=== PATIENT | female | born 2000 | race Caucasian/White ===

== ENCOUNTER 2024-05-31 05:27 | Inpatient (IN) | payer MEDICAID, SELFPAY ==
--- NOTE | 2024-05-27 09:08 | ESHP_ITS ---
RE: YOLA OLMSTEAD : 2000 DATE OF ADMISSION: 05/31/2024 HISTORY OF PRESENT ILLNESS: This is a 23-year-old 2, para 1-0-0-1 with due date of 06/07/2024 with intrauterine at 39 weeks' gestation on 05/31/2024, who presents for repeat delivery. The patient has had a prior delivery and she elects repeat delivery. She denies any leaking or bleeding. She reports normal movement. Her care was complicated by Klebsiella urinary tract infection back in 10/2023. Her group B strep vaginal rectal swab is positive. MEDICATIONS: multivitamin 1 p.o. daily. SOCIAL HISTORY: She denies any alcohol, drug use or smoking. PAST MEDICAL HISTORY: Denies. FAMILY HISTORY: Denies. OBSTETRIC HISTORY: In 05/2021, 40-week delivery, 8 pound male, no complications. PAST SURGICAL HISTORY: delivery in 05/2021. REVIEW OF SYSTEMS: She denies any chest pain, palpitations, cough, fever, shortness of breath, or lower extremity pain. PHYSICAL EXAMINATION: VITAL SIGNS: Blood pressure 133/70, heart rate 88, respirations 18, temperature is 98.2, weight 236 pounds. HEENT: Oropharynx and sclerae are clear. LUNGS: Clear to auscultation bilaterally. HEART: Regular rate and rhythm. ABDOMEN: Gravid, term size. Old Pfannenstiel scar noted. EXTREMITIES: Nontender. SKIN: No gross rashes or lesions. NEUROLOGIC: No focal deficit. ASSESSMENT: Intrauterine at 39 weeks, previous delivery, elects repeat delivery. PLAN: Repeat delivery. Informed consent was obtained. The patient made aware of the risks, complications, alternatives, benefits of the proposed procedure and she agrees. DT: 08:50:12 TT: 09:07:00 Ref: [id number] - TID: [id number] MTDEmily
[2024-05-30 09:11] LABS: Basophils % (Auto) 0 % (0-2.5); Eosinophils # (Auto) 0.1 Thou/mm3 (0.0-0.5); Eosinophils % (Auto) 1 % (0-10); Hematocrit 35.5 % (36.0-46.0); Hemoglobin 12.3 g/dL (12.0-16.0); Immature Granulocytes % (Auto) 0 % (0-0); Immature Granulocytes Auto 0.02 Thou/mm3 (0.00-0.00); Lymphocytes # (Auto) 2.2 Thou/mm3 (1.0-4.8); Lymphocytes % (Auto) 29 % (10-50); Mean Corpuscular HGB Conc 34.6 g/dl (31.0-37.0); Mean Corpuscular Hemoglobin 28.4 pg (25.0-35.0); Mean Corpuscular Volume 82 fL (80-100); Monocytes # (Auto) 0.6 Thou/mm3 (0.0-0.8); Monocytes % (Auto) 7 % (0-12); Neutrophils # (Auto) 4.6 Thou/mm3 (1.8-7.7); Neutrophils % (Auto) 62 % (37-80); Nucleated Red Blood Cell % 0 /100 WBC (0); Platelet Count 155 Thou/mm3 (140-440); Red Blood Count 4.33 Miln/mm3 (4.00-5.20); White Blood Count 7.4 Thou/mm3 (3.6-11.0)
[2024-05-30 09:34] LABS: Alanine Aminotransferase 12 U/L (10-49); Albumin, Serum 3.8 gm/dL (3.5-5.0); Albumin/Globulin Ratio 1.5 (1.2-2.2); Alkaline Phosphatase 177 U/L (46-116); Anion Gap 8 (7-16); Aspartate Amino Transferase 17 U/L (0-34); BUN/Creatinine Ratio 14 Ratio (12-20); Bilirubin,Total 0.5 mg/dL (0.3-1.2); Blood Urea Nitrogen 11 mg/dL (9-23); Calcium (Corrected) 9.2 mg/dL (8.5-10.1); Carbon Dioxide 24.5 mMol/L (20.0-31.0); Chloride 105 mMol/L (98-107); Creatinine (Component) 0.8 mg/dL (0.6-1.3); Globulin 2.5 gm/dL (2.3-3.5); Glucose 83 mg/dL (74-106); Osmolality,Calculated 272 (275-295); Potassium 4.2 mMol/L (3.4-5.1); Sodium 137 mMol/L (136-145); Total Protein 6.3 gm/dL (5.7-8.2); eGFR > 60 See Note
[2024-05-30 09:48] LABS: INR 0.9 (0.9-1.3); Partial Thromboplastin Time 26.2 Seconds (22.0-36.0); Prothrombin Time 9.9 Seconds (9.0-12.2); Syphilis Nonreactive (Nonreactive)
[2024-05-31] VITALS (37 sets, daily range): BP systolic 114–135; BP diastolic 60–96; PULSE 48–96; RESP 16–19; TEMP 36.3–37.1; O2SAT 94–100; BMI 42.3
[2024-05-31] MEDS: RINGERS LACTATED 1000 ML 1,000 ML 999 ML IV (05:53)
[2024-05-31] MEDS: RINGERS LACTATED 1000 ML 1,000 ML 100 ML IV (06:55)
[2024-05-31] MEDS: ceFAZolin/D5W 2 GM IV 2 GM/100 ML BAG IV (07:03)
[2024-05-31] MEDS: FAMOTIDINE INJ 10 MG/ML VIAL 2 ML 20 MG IV (07:09)
[2024-05-31] MEDS: METOCLOPRAMIDE INJ 5 MG/ML VIAL 2 ML 10 MG IVP (07:09)
--- NOTE | 2024-05-31 07:48 | PD.LDDS ---
DS: Providers Provider Date of admission: 05/31/24 05:27 Primary care physician: Physician No Primary/Family Admitting Provider: Adriel Garnica MD Attending Provider on Admission: Adriel Garnica MD Attending Provider on DC: Adriel Garnica MD Discharging Provider: Adriel Garnica MD DS: Diagnosis Problem List Completed Was Problem List Reviewed/Reconciled?: Yes Summary/Hosp Course Peripartum Data Procedures: Procedures Operation Date: 05/31/24 07:45 <No data on this case meets the specified criteria> Time Spent with Patient Time attestation: Total time spent providing and/or coordinating discharge services: Exam Vital Signs Temp Pulse Resp BP Pulse Ox 97.6 F 59 L 18 126/76 94 L 05/31/24 07:07 05/31/24 07:07 05/31/24 07:07 05/31/24 07:07 05/31/24 07:31 Discharge Plan Plan Patient Disposition: HOME (Self Care) Patient condition on transfer: Stable Prescriptions/Referrals Prescriptions/Med Rec: New ibuprofen 600 mg tablet 600 mg PO Q6H PRN (Reason: pain) Qty: 30 0RF Continued Plus (calcium carb) 27 mg iron- 1 mg tablet 1 tab PO QDAY Patient Comments: Take 1 tablet by mouth once a day Referrals: No Primary/Family,Physician [Primary Care Provider] - Patient/Caregiver Discharge Instructions Discharge Activity: activity as tolerated Other Discharge Activity Instructions:: Follow up office 1 week. Education Materials: C Section Dc Print Language: Divehi Stand Alone Forms: Kassidy Award Info., Patient Portal Info Letter Discharge Order Discharge Orders: Discharge (Routine); Ordered 06/02/24 Ordered By: Adriel Garnica Planned Discharge Date 06/02/24
--- NOTE | 2024-05-31 08:44 | OBDSUM_ITS ---
Data ([facility]) Data Hx Section: Yes (2020) : 2 Para: 1 Term: 1 : 0 : 0 Delivery Data ([facility]) Labor Data ROM Date: 05/31/24 ROM Time: 08:11 Rupture Type: AROM Delivery Data EDC: 05/24/24 EDC calculated by:: LMP/early US confirmation Labor Onset Stage 1 Date: 05/31/24 Labor Onset Stage 1 Time: 08:11 Labor Onset Stage 2 Date: 05/31/24 Labor Onset Stage 2 Time: 08:11 Delivery Date: 05/31/24 Delivery Time: 08:11 Gestational age (weeks): 39 Gestational age (days): 0 Placenta Delivery Date: 05/31/24 Placenta Delivery Time: 08:12 Delivered by: Adriel Garnica Delivery nurse: Marian Eisenberg Other staff at delivery: Nursery Nurse Other staff at delivery: Scrub Other staff at delivery: Laurent, Sky Delivery Method Delivery: Delivery Type: Repeat Presentation: Vertex Position: OP Anesthesia Type Primary Anesthesia: Spinal Delivery Room Medications Other Intrapartum Medications: Yes Placenta Placenta Delivery: Manual Placenta Cultures Obtained: No Placenta Sent for Examination: No Cord Sample: Cord Blood Obtained EBL Estimated blood loss (ml): 500 Umbilical Cord Umbilical Vessels: 3 Nuchal Cord: None Body Cord: None Additional Procedures Lysis of pelvic adhesions Complications Complications: None Data ([facility]) [place] Data Gender: Male Weight Grams: 3555 1 Minute Total: 9 5 Minute Total: 9
[2024-05-31] MEDS: OXYTOCIN in NS 20 units 20 UNIT/1,000 ML BAG 125 UNIT IV ×2 (09:34→17:49)
--- NOTE | 2024-05-31 10:47 | ESOP_ITS ---
RE: YOLA OLMSTEAD : 2000 DATE OF OPERATION: 05/31/2024 PREOPERATIVE DIAGNOSIS: Intrauterine at 39 weeks, previous delivery, elects repeat delivery. POSTOPERATIVE DIAGNOSIS: Intrauterine at 39 weeks, previous delivery, elects repeat delivery with pelvic adhesions and adenomyosis. PROCEDURE PERFORMED: A repeat low transverse section via Pfannenstiel skin incision and lysis of adhesions. SURGEON: Adriel Garnica DO ATTENDING UROLOGIST: LIDIA Mendiola ANESTHESIA: Spinal. ANESTHESIOLOGIST: Bruce Eller CRNA ESTIMATED BLOOD LOSS: 500 mL. COMPLICATIONS: None. COUNTS: Correct. PATHOLOGY: None. FINDINGS: A live male , cephalic presentation, clear amniotic fluid. Apgars 9 and 9, weight 3555 grams, male, cephalic. Placenta removed completely intact. Myometrium hypertrophic consistent with adenomyosis without any obvious endometriotic implants. Adhesions of the uterus to the anterior peritoneum with thick bands of tissue in the left mid uterine segment. DESCRIPTION OF PROCEDURE: After proper informed consent was obtained and the patient was made aware of the risks, complications, alternatives, and benefits of the proposed procedure, she was taken to the operating room where she underwent induction of spinal anesthesia. She was placed in dorsal supine position with leftward tilt. She was prepped and draped in usual sterile fashion. A timeout was performed. Pfannenstiel skin incision made with scalpel and carried through to the underlying layer of fascia with the Bovie. The fascia was nicked in the midline and incision extended bilaterally with the Bovie. Inferior aspect of fascial incision was grasped with Antelmo clamps, elevated, and the underlying rectus muscle dissected off with the Bovie. The rectus muscles were the midline. The peritoneum identified between 2 Egan clamps and entered sharply with the Metzenbaum scissors. The incision was extended superiorly and inferiorly with good visualization of bladder. Two fibrous adhesive bands were noted and they were doubly clamped with Egan clamps, transected, and suture ligated with 0 Vicryl, and hemostasis was achieved. This freed up visualization of the lower uterine segment. The Liz blade was placed and the vesicouterine peritoneum was incised transversely and bladder flap created digitally. Bladder blade was reinserted. Lower uterine segment incised in transverse fashion with scalpel. The incision was extended bilaterally digitally. The 's head delivered. The mouth and nose suctioned with bulb suction. Shoulder and body delivered atraumatically. The cord was clamped and cut. The infant sent off the awaiting pediatric staff. Cord blood and gases were sent. Placenta was then removed manually. The uterus exteriorized and cleared of all clots and debris. Uterine incision was repaired with #1-0 chromic catgut suture in running locking fashion. Second layer of same suture was used to imbricate the first layer obtaining excellent hemostasis. The vesicouterine peritoneum was closed with 2-0 chromic catgut suture in running fashion. The uterus was returned to the abdomen. The gutters were cleared of all clots and debris. The peritoneum was closed with 0 chromic catgut suture in running fashion. The muscle closed with 0 chromic catgut suture in running fashion. The fascia was closed with 0 Vicryl beginning each angle and ending center in a running fashion. Subcutaneous tissue was irrigated with normal saline solution and closed with 2-0 chromic catgut suture in running fashion. Skin was closed with 4-0 Monocryl. Dermabond Prineo dressing was applied. A sterile pressure dressing was applied. counts were correct. I discussed with the patient the nature of her condition, intraoperative findings, expectation for recovery. All questions were answered. DT: 08:47:01 TT: 10:42:00 Ref: [id number] - TID: [id number] [facility] SYSTEMEmily
[2024-05-31 13:14] LABS: Basophils % (Auto) 0 % (0-2.5); Eosinophils # (Auto) 0.1 Thou/mm3 (0.0-0.5); Eosinophils % (Auto) 0 % (0-10); Hematocrit 33.1 % (36.0-46.0); Hemoglobin 11.8 g/dL (12.0-16.0); Immature Granulocytes % (Auto) 0 % (0-0); Immature Granulocytes Auto 0.05 Thou/mm3 (0.00-0.00); Lymphocytes # (Auto) 1.7 Thou/mm3 (1.0-4.8); Lymphocytes % (Auto) 15 % (10-50); Mean Corpuscular HGB Conc 35.6 g/dl (31.0-37.0); Mean Corpuscular Volume 81 fL (80-100); Monocytes # (Auto) 0.5 Thou/mm3 (0.0-0.8); Monocytes % (Auto) 4 % (0-12); Neutrophils # (Auto) 8.9 Thou/mm3 (1.8-7.7); Neutrophils % (Auto) 80 % (37-80); Nucleated Red Blood Cell % 0 /100 WBC (0); Platelet Count 129 Thou/mm3 (140-440); Red Blood Count 4.07 Miln/mm3 (4.00-5.20); White Blood Count 11.2 Thou/mm3 (3.6-11.0)
[2024-05-31] MEDS: HYDROcodone/APAP 5/325 TABLET 2 TAB PO (15:23)
[2024-05-31] MEDS: IBUPROFEN TAB 400 MG TABLET 800 MG PO (19:08)
[2024-06-01] MEDS: IBUPROFEN TAB 400 MG TABLET 800 MG PO ×3 (03:54→20:25)
[2024-06-01 03:56] VITALS: BP 123/79; PULSE 62; RESP 18; TEMP 36.4; O2SAT 98
[2024-06-01 08:40] VITALS: BP 119/72; PULSE 74; RESP 17; TEMP 36.8; O2SAT 98
[2024-06-01] MEDS: HYDROcodone/APAP 5/325 TABLET 2 TAB PO (08:45)
[2024-06-01 11:55] VITALS: BP 113/69; PULSE 65; RESP 14; TEMP 36.8; O2SAT 97
[2024-06-01 16:30] VITALS: BP 121/80; PULSE 66; RESP 17; TEMP 36.9; O2SAT 97
[2024-06-01 20:25] VITALS: TEMP 37
[2024-06-01] MEDS: DOCUSATE SOD 250 MG CAPSULE PO (20:25)
[2024-06-02 04:00] VITALS: BP 111/73; PULSE 77; RESP 17; TEMP 36.4; O2SAT 99
[2024-06-02 04:19] VITALS: TEMP 36.4
[2024-06-02] MEDS: IBUPROFEN TAB 400 MG TABLET 800 MG PO (04:19)
[2024-06-02 07:45] VITALS: BP 123/77; PULSE 75; RESP 17; TEMP 37; O2SAT 98
--- NOTE | 2024-06-02 08:41 | ESPR_ITS ---
RE: YOLA OLMSTEAD : 2000 DATE OF SERVICE: 06/02/2024 S: Postop day #2, the patient denies any problem or complaints. She is voiding. She is ambulating. She is tolerating regular diet. She is passing flatus. She denies any excessive vaginal bleeding. She denies any dizziness or lightheadedness. She denies any chest pain, palpitations, shortness of breath or lower extremity pain. She denies any depression or anxiety. O: Vital Signs: Blood pressure is 111/73, heart rate 77, respirations 17, temperature 97.5. Lungs: Clear to auscultation bilaterally. Heart: Regular rate and rhythm. Abdomen: Nondistended. Incision clean and intact. Fundus is firm. Extremities: Nontender. ASSESSMENT: Postop day #2 status post delivery, lysis of adhesions. P: Discharge home. Discharge instructions given. Follow up in the office in 1 week. DT: 06:47:53 TT: 08:40:00 Ref: [id number] - TID: [id number]
--- NOTE | 2024-06-02 12:20 | ESPR_ITS ---
RE: YOLA OLMSTEAD : 2000 DATE OF SERVICE: 06/01/2024 S: Postop day #1, the patient denies any problem or complaint. She is voiding. She is ambulating. She is tolerating regular diet. She is passing flatus. She denies any excessive vaginal bleeding. She denies any dizziness or lightheadedness. She denies any chest pain, palpitations, shortness of breath, or lower extremity pain. She denies any depression or anxiety. She is asking for something to prevent constipation. O: VITAL SIGNS: Blood pressure 123/79, heart rate 62, respirations 18, temperature 97.6, pulse ox is 98% on room air. LUNGS: Clear to auscultation bilaterally. HEART: Regular rate and rhythm. ABDOMEN: Nondistended. Dressing is dry and intact. EXTREMITIES: Nontender. LABORATORY DATA: Hemoglobin pre-surgery is 12.3, post surgery is 11.8. ASSESSMENT: Postop day #1 status post delivery and lysis of adhesions. P: Remove dressing. Discontinue IV. Encourage ambulation. Stool softener. Possible discharge home tomorrow. support. DT: 07:50:39 TT: 08:10:00 Ref: [id number] - TID: [id number]
== END 2024-06-02 10:41 | disposition home or self-care (01) | DRG 540 ==
LOC: S4SX 07:48 → S4NX 08:16
PROVIDERS: Admitting Provider Specialist; Visit Provider Specialist
PROC: 10D00Z1 Extraction of Products of Conception, Low, Open Approach (ICD-10-PCS; CPT 59514; principal; 2024-05-31 07:30)
DX: O34.211 Maternal care for low transverse scar from previous cesarean delivery (principal); Z37.0 Single live birth; Z3A.39 39 weeks gestation of pregnancy; O34.83 Maternal care for other abnormalities of pelvic organs, third trimester; N80.03 Adenomyosis of the uterus
CPT/HCPCS: 36415; 80053; 85025; 85610; 85730; 86780; 86850; 86900; 86901; A4649; J0689; J2274; J2590; J2765; J3010; J3490; J7120; A9270; J0690; J2270

== ENCOUNTER 2025-04-13 01:54 | Emergency (ER) | payer MEDICAID, SELFPAY ==
[2025-04-13 01:55] VITALS: BMI 36.6
[2025-04-13 02:06] VITALS: BP 133/89; PULSE 65; RESP 19; TEMP 36.4; O2SAT 98
--- NOTE | 2025-04-13 02:38 | PD.EDEAR ---
ED Ear RME/HPI General Chief complaint: Ear Stated complaint: LEFT EAR PAIN SINCE WEDNESDAY Time Seen by Provider: 04/13/25 02:23 Arrival date/time: 04/13/25 01:54 24F with no significant PMH presents to ED with several days of L ear pain, as well as some nasal congestion. Limitations: no limitations Related Data Home Medications ?Medication ?Instructions ?Recorded ?Confirmed vitamins with calcium 1 tab PO QDAY 05/31/24 05/31/24 no.72-iron 27 mg-folic acid 1 mg tablet ( Plus (calcium carbonate)) Previous Rx's ?Medication ?Instructions ?Recorded ibuprofen 600 mg tablet 600 mg PO Q6H PRN pain #30 tabs 06/02/24 amoxicillin 875 mg tablet 875 mg PO BID 5 days #10 tabs 04/13/25 Allergies Allergy/AdvReac Type Severity Reaction Status Date / Time No Known Allergies Allergy Verified 04/13/25 01:55 Review of Systems Review of Systems Systems Reviewed: All systems reviewed, normal except as documented ENT Ears, Nose, Mouth, and Throat: Reports as per HPI, Reports otalgia and Reports nasal congestion Past Medical History Past Medical History NEUROLOGIC: Negative Neurological Disorders, Cerebrovascular Accident, Transient Ischemic Attacks (TIA), Dementia, Alzheimer's Disease, Parkinson's Disease, Brain Tumor, Meningitis, Seizures, Epilepsy, Multiple Sclerosis, Cerebral Palsy, Amyotrophic Lateral Sclerosis (ALS/Melida Gehrig's), Guillain-[place] Syndrome, Spina Bifida, Paralysis, Peripheral Neuropathy, Valdovinos's Palsy, Subdural Hematoma, Migraine, Head Trauma, Spinal Cord Injury or Traumatic Brain Injury CARDIAC: Negative Cardiac Disorders, Myocardial Infarction, Cardiac Arrhythmia, Atrial Fibrillation, Angina, Heart Murmur, Coronary Artery Disease, Atherosclerotic Heart Disease, Peripheral Vascular Disease, Hypercholesterolemia, Aneurysm, Congestive Heart Failure, Congenital Heart Disease, Valvular Heart Disease, Rheumatic Fever, Cardiomyopathy, Edema, Pericarditis, Cellulitis, Deep Vein Thrombosis, Hypertension, Hypotension or Varicose Veins RESPIRATORY: Positive Asthma (as a child); Negative Chronic Obstructive Pulmonary Disease (COPD), Bronchitis, Emphysema, Pneumonia, Pulmonary Fibrosis, Cystic Fibrosis, Tuberculosis, Pulmonary Embolism, Pulmonary Edema or Sleep Apnea GASTROINTESTINAL: Negative Gastrointestinal Disorders, Hepatitis, Cirrhosis, Pancreatitis, Celiac Disease, Gall Bladder Disease, Gastrointestinal Bleed, Esophageal Varices, Alcazar's Esophagus, Colitis, Ulcerative Colitis, Diverticulitis, Diverticulosis, Ulcer, Colorectal Cancer, Irritable Bowel, Crohn's Disease, Obstructive Bowel, Hiatal Hernia, Hemorrhoids, Gastroesophageal Reflux Disease or Obesity GENITOURINARY: Positive Genitourinary Disorders (hx of uti); Negative Renal Disease, Kidney Stones, Polycystic Kidney Disease, Neurogenic Bladder, Inguinal Hernia, Dialysis, Prostate Cancer or Benign Prostatic Hyperplasia REPRODUCTIVE: Negative Breast Cancer, Endometriosis, Genital Herpes, Gonorrhea, Pelvic Inflammatory Disease, Previous Pregnancies, Syphilis, Testicular Cancer or Uterine Prolapse MUSCULOSKELETAL: Negative Musculoskeletal Disorders, Muscular Dystrophy, Myasthenia Gravis, Marfan's Syndrome, Bone Cancer, Arthritis, Rheumatoid Arthritis, Osteoporosis, Degenerative Disk Disease, Gout, Scoliosis, Carpal Tunnel Syndrome, Fibromyalgia, Fractures, Degenerative Joint Disease, Osteomyelitis or Poliovirus ENT: Negative Cataracts, Glaucoma, Blind, Retinal Detachment, Macular Degeneration, Ear Infection, Deafness, Head Trauma or Eye Prosthesis ENDOCRINE: Negative Endocrine Disorders, Diabetes Mellitus Type 1, Diabetes Mellitus Type 2, Hypoglycemia, Trevorton's Syndrome, [place]'s Disease, Hyperthyroidism, Hypothyroidism, Parathyroid Disease, Pituitary Disease, Systemic Lupus Erythematosus, Syndrome of Inappropriate Antidiuretic Hormone (SIADH), Adrenal Disease or Graves' Disease HEMATOLOGIC: Negative Blood Disorders, Anemia, Leukemia, Hemophilia, Thalassemia, Sickle Cell Disease or Clotting Problems PSYCHO/SOCIAL: Negative Psychiatric Problems, Schizophrenia, Recreational Drug Use, Bipolar Disorder, Depression, Anxiety, Behavior Problems, Self-Mutilation, Attention Deficit Disorder, Attention Deficit Hyperactivity Disorder, Depression, Post Traumatic Stress Disorder or Eating Disorder OTHER HISTORY: Negative Hospitalization, Autoimmune Disease, Down Syndrome, Autism, Developmental Delay, Shingles, Falls, Blood Transfusions, Blood Transfusion Reaction, Anesthesia Reactions, Organ Transplant, Chemotherapy, Radiation Therapy, Hyperbaric Therapy, MRSA, VRSA, Human Immunodeficiency Virus (HIV), Chicken Pox, Measles, Mumps, Rubella ([place] Measles), Pertussis, Clostridium Difficile, Cancer, Breast Cancer, Cervical Cancer, Colorectal Cancer, Lung Cancer, Ovarian Cancer, Prostate Cancer or Testicular Cancer Family History FAMILY HISTORY: Positive Family Respiratory Disorders (brother-asthma); Negative Family Psychiatric Problems, Family Cardiac Disorders, Family Gastrointestinal Problems, Family Cancer, Family Surgery or Family Anesthesia Reaction Surgical History SURGICAL: Positive Section (2020); Negative Cardiac Surgery, Open Heart Surgery, Coronary Artery Bypass Graft, Valve Replacement, Vascular Surgery, Coronary Stent, Cardiac Catheterization, Pacemaker, Angiogram, Auto Implanted Cardiovert Defib, Carotid Endarterectomy, Endocrine Surgery, Thyroidectomy, Ear Surgery, Tympanostomy Tube, Eye Surgery, Nose Surgery, Oral Surgery, Tonsillectomy, Adenoidectomy, Cochlear Implant, Corneal Transplant, Throat Surgery, Abdominal Surgery, Tracheostomy, Gastric Bypass Surgery, Gastrostomy, Bowel Surgery, Nephrectomy, Transurethral Resection, Joint Replacement, Amputation, Open Reduction Internal Fixation, Arthroscopy, Neurologic Surgery, Brain Shunt, Mastectomy, Lumpectomy, Hysterectomy, Tubal Ligation, Vasectomy or Organ Transplant Social History SMOKING STATUS: Never smoker ED Exam General Limitations: Present no limitations General appearance: Present alert and in no apparent distress Head Head exam: Present atraumatic ENT ENT exam: Present mucous membranes moist Expanded ENT Exam TM/Canal exam: Left TM: erythema and bulging Neck Neck exam: Present normal inspection, full ROM and trachea midline Chest Chest inspection: Present normal inspection and symmetric chest wall rise Neurological Exam Neurological exam: Present alert and oriented X3 Psychiatric Psychiatric exam: Present normal affect and normal mood Skin Skin exam: Present warm, dry, intact and normal color Course Quality Measures none Vital Signs Vital signs: Vital Signs Temperature 97.6 F 04/13/25 02:06 Pulse Rate 65 04/13/25 02:06 Respiratory Rate 19 04/13/25 02:06 Blood Pressure 133/89 H 04/13/25 02:06 Pulse Oximetry (%) 98 04/13/25 02:06 Oxygen Delivery Method Room Air 04/13/25 02:06 O2 at 98% on RA and WNLs Ear MDM Narrative MDM Narrative:: 24F with no significant PMH presents to ED with several days of L ear pain, as well as some nasal congestion. Physical exam reveals L red and bulging TM. No tragal tenderness. No rash. Symmetric facial expressions. Patient is afebrile, calm, and alert. Meds and director of group counseling program given. Patient data External records reviewed:: [facility] previous records Clinical information provided by:: patient Social determinants that could affect healthcare access:: none Patient has the following chronic illnesses:: none How is presenting disease/condition affected by chronic disease/condition?: no chronic disease Evaluation data The following diagnostics were reviewed and interpreted by me:: other (specify) (none) Lab and/or radiology exams considered but not ordered:: not ordered Interpretation Summary: n/a Medications / Prescriptions Medications or Prescriptions considered but not ordered:: not ordered Medication administrations:: n/a Consultations Consultation(s) initiated? (list below): No Diagnosis Ear Differential Diagnosis: otitis externa, otitis media, foreign body in ear, ruptured TM, cerumen impaction and other ([place] Linares Syndrome ) Most likely diagnosis given after review of the tests above:: OM Admission Indicated Admission indicated?: not indicated Admission Request Was there a request for admission?: No Disposition Plan Disposition Plan: Discharge Discharge Attestation Discharge Attestation: The patient and all family members were given an opportunity to ask questions and understood the discharge instructions. Discharge instructions specifically effects, indications for sooner follow up or return to the emergency department, and the expected course of current diagnosis. Patient condition: Stable Discharge Plan Plan Patient Disposition: HOME (Self Care) Discharge Disposition comment: Stable Prescriptions/Referrals Prescriptions/Med Rec: New amoxicillin 875 mg tablet 875 mg PO BID 5 Days Qty: 10 0RF No Action Plus (calcium carb) 27 mg iron- 1 mg tablet 1 tab PO QDAY Patient Comments: Take 1 tablet by mouth once a day ibuprofen 600 mg tablet 600 mg PO Q6H PRN (Reason: pain) Qty: 30 0RF Problem List Clinical Impression: Otitis media Patient/Caregiver Discharge Instructions Education Materials: ED Otitis Media Antibiotic ... Additional Instructions: Please follow-up with PCP within 24-48 hours and return immediately if symptoms worsen. Print Language: Czech Stand Alone Forms: Patient Portal Info Letter MIKA/JENELLE Supervising Physician MIKA/JENELLE Supervising Physician: Dr. Rutherford
== END 2025-04-13 02:24 | disposition home or self-care (01) ==
LOC: SERX 03:26
PROVIDERS: Emergency Provider Emergency Medicine; PCP Family Medicine
DX: H66.92 Otitis media, unspecified, left ear (principal)
CPT/HCPCS: 99281